=== PATIENT | female | born 1985 | race Caucasian/White ===

== ENCOUNTER 2016-09-16 16:33 | Emergency (ER) | payer OTHER ==
[~2016-09-16 16:33] MED LIST: PHEN-523 PO
[2016-09-16 16:41] VITALS: TEMP 36.8; Ht 154.9 cm
[2016-09-16] MEDS ORDERED: IBUPROFEN 600 MG TAB PO STA (16:57)
[2016-09-16] MEDS ORDERED: HYDROCODONE/ACETAMOPHEN 5/325MG TAB PO STA (16:57)
[2016-09-16] MEDS ORDERED: IBUP-1050 PO (16:59)
[2016-09-16] MEDS ORDERED: IBUPROFEN 200 MG TAB ONE (17:17)
--- NOTE | 2016-09-16 17:32 | DIAGNOSTIC IMAGING REPORT ---
LEFT ANKLE 3 VIEWS CLINICAL HISTORY: Fall with left ankle injury. FINDINGS: 3 views of left ankle are obtained. No prior studies are available for comparison at the time of dictation. The Skeletal structures are well mineralized. No fracture is seen. The ankle mortise is intact. A small os trigonum is incidentally noted. There is no joint effusion. Mild soft tissue swelling is present around ankle. IMPRESSION: Mild soft tissue swelling with no radiographic evidence of left ankle fracture. Electronically signed by: Isac Wilson M.D. 09/16/2016 5:30 PM Dictated Date/Time: 09/16/2016 5:29 PM
[2016-09-16] MEDS ORDERED: ONDANSETRON 4MG OD TAB PO STA (17:38)
--- NOTE | 2016-09-16 17:49 | EMERGENCY ROOM VISIT NOTE ---
ED Visit Note First contact with patient: 16:52 CHIEF COMPLAINT: Ankle pain HISTORY OF PRESENT ILLNESS: This 30-year-old female patient presents to the emergency department after sustaining an injury to the left ankle with a twisting, inversion motion around 3 PM today. Patient states she was getting off of a [place] stepped into a hole in the ground and rolled her ankle. The patient complains of pain along the outside of the ankle. The patient does not complain of any pain of the foot. The patient rates the pain as throbbing and 8 /10. The patient is not able to bear weight on the foot. Constant pain, worse with movement, weight bearing, and the dependent position. No knee pain, the patient is able to move their toes. No numbness or weakness of the foot, no laceration. The patient has not had a previous fracture to this ankle. The patient has taken 400 mg of ibuprofen for the pain 2 hours ago. The patient denies any other injury. REVIEW OF SYSTEMS: A 6 system review of systems was completed with positives and pertinent negatives listed in the HPI. ALLERGIES: None MEDICATIONS: No prescribed medications PMH: None SOCIAL HISTORY: Current every day smoker, denies alcohol, denies recreational drugs. PHYSICAL EXAM: Vital Signs: Reviewed Nurse's notes, vital signs stable. GENERAL : Alert and pleasant, no acute distress, but appears in pain, well-developed, well-nourished. MENTAL STATUS: Alert, oriented to person place and time, and cooperative. MUSCULOSKELETAL: The left ankle is swollen and tender over the lateral malleolus, but the skin is intact and there is no ligamentous instability. There is no fifth metatarsal tenderness. There is no tenderness over the rest of the foot. There is no calf or tibia/fibular tenderness. There is no visual deformity. The foot and toes are warm and well-perfused. Dorsalis pedis pulse 2+. Sensation to pain and light touch is intact. Capillary refill less than 2 seconds. IMAGING: LEFT ANKLE 3 VIEWS CLINICAL HISTORY: Fall with left ankle injury. FINDINGS: 3 views of left ankle are obtained. No prior studies are available for comparison at the time of dictation. The Skeletal structures are well mineralized. No fracture is seen. The ankle mortise is intact. A small os trigonum is incidentally noted. There is no joint effusion. Mild soft tissue swelling is present around ankle. IMPRESSION: Mild soft tissue swelling with no radiographic evidence of left ankle fracture. EMERGENCY DEPARTMENT COURSE: I examined the patient. Ankle exam as above, motor and sensation intact. X-rays of the left ankle were reviewed by myself and read by radiology and reveal no acute fracture, soft tissue swelling along the lateral aspect of the ankle. Exam findings consistent with lateral ankle sprain. Patient was given Mozier and ibuprofen for pain, with good improvement. Gel ankle splint was applied to the ankle under my direction and the position was satisfactory. Neurovascular status was rechecked and intact. The patient was instructed on the use of crutches. The patient was discharged home in good condition. Problem List Medical Problems: (1) Acute Tonsillitis Status: Resolved (2) Cervicalgia Status: Chronic (3) Otitis Media Nos Status: Resolved (4) Ovarian Cyst Nec/Nos Status: Chronic Current/Historical Medications Miscellaneous Medications Ibuprofen (Advil), 200 MG PO Allergies Coded Allergies: No Known Allergies (Verified , 04/26/12) Vital Signs Date Time Temp Pulse Resp B/P Pulse Ox O2 Delivery O2 Flow Rate FiO2 09/16/16 18:36 79 18 125/76 98 09/16/16 16:41 36.8 85 16 132/72 98 Room Air Medications Administered Medications (Trade) Dose Ordered Sig/Raghavendra Route Start Time Stop Time Status Last Admin Dose Admin Acetaminophen/ Hydrocodone Bitart (Mozier 5/325 Tab) 1 tab NOW STAT PO 09/16/16 16:57 09/16/16 16:59 DC 09/16/16 17:19 1 TAB Ibuprofen (Advil Tab) 400 mg STK-MED ONCE .ROUTE 09/16/16 17:17 09/16/16 17:18 DC 09/16/16 17:20 400 MG Ondansetron HCl (Zofran Odt) 4 mg NOW STAT PO 09/16/16 17:38 09/16/16 17:39 DC 09/16/16 17:59 4 MG Departure Information Impression Primary Impression: Left ankle sprain Dispostion Home / Self-Care Condition GOOD Referrals No Doctor, Assigned (PCP) Patient Instructions Ankle Sprain, My [facility] Additional Instructions Ice and elevation for the next 2 days, use crutches to avoid weight bearing on the left leg, wear the splint on the left ankle at all times during the day. Do not get the splint wet. You may remove the splint for bathing/showering. Ibuprofen, 800 mg and Tylenol 1000 mg every 8 hours if needed for pain. See your doctor or an orthopedic surgeon if there is no improvement in 4 - 5 days. Problem Qualifiers Primary Impression: Left ankle sprain Encounter type: initial encounter Involved ligament of ankle: unspecified ligament Qualified Codes: S93.402A - Sprain of unspecified ligament of left ankle, initial encounter
[2016-09-16 18:36] VITALS: BP 125/76; PULSE 79; O2SAT 98
== END 2016-09-16 18:38 | disposition home or self-care (01) ==
LOC: C.EDB 16:34 → C.EDD 18:38
DX: S93.402A Sprain of unspecified ligament of left ankle, initial encounter (principal); X50.0XXA Overexertion from strenuous movement or load, initial encounter; W18.42XA Slipping, tripping and stumbling without falling due to stepping into hole or opening, initial encounter; F17.210 Nicotine dependence, cigarettes, uncomplicated